=== PATIENT | male | born 1960 | race Caucasian/White ===

== ENCOUNTER 2016-11-25 17:48 | Inpatient (IN) | payer OTHER ==
[~2016-11-25] VITALS: Ht 175.3 cm; Wt 114.2 kg
[~2016-11-25 17:48] MED LIST: ASPIR 8181 M1 PO; ATORVASTATIN CA40 MG PO; AUGMENTIN875 MG PO; BACTRIM,SEPT1 TABLET PO; CLOPIDOGREL75 MG PO; COLACE100 MG PO; DUONEB3 ML IH; ERYTHROCIN BAS250 MG PO; GLIPIZIDE5 MG PO; GLUCOPHAGE1000 MG PO; GLYBURIDE5 MG PO; HABITROL,NICODE21 MG TD; HUMULIN N100 UNITS/ SC; HUMULIN NP100 UNIT/1 SC; KEFLEX500 MG PO; LANTUS 10100 UNITS/ SC; LEVAQUIN500 MG PO; LIPITOR40 MG PO; METFORMIN HCL1000 MG PO; NOHOMEMEDS; NORCO 5/3251 TABLET PO; PLAVIX75 MG PO; TYLENOL EXTRA500 MG PO; Tylenol Regular Stre PO; Zestril,Prinivil PO; Zocor PO
[2016-11-25 18:32] LABS: EOSINOPHIL (%) 2.2 % (0-5); EOSINOPHIL COUNT 0.1 K/uL (0-0.3); HEMATOCRIT 32.2 % (38.0-50.0); LYMPHOCYTE COUNT 0.9 K/uL (1.0-2.8); MCH 28.8 PG (29.0-34.0); MCHC 33.9 G/DL (30.0-36.0); MEAN PLAT.VOLUME 9.7 uM^3 (9.0-12.4); MONOCYTE (%) 15.1 % (3-12); MONOCYTE COUNT 0.7 K/uL (0-0.8); NEUTROPHIL (%) 61.7 % (45-76); NEUTROPHIL COUNT 2.8 K/uL (1.8-6.4); PLATELET COUNT 181 K/uL (156-360); RBC DIS.WIDTH-CV 13.5 % (11.8-14.6); RBC DIS.WIDTH-SD 40.9 % (39-53); RED BLOOD COUNT 3.79 M/uL (4.00-5.50); WHITE BLOOD COUNT 4.5 K/uL (4.1-10.2)
[2016-11-25 18:40] LABS: CHLORIDE 103 mEq/L (99-109); SODIUM 141 mEq/L (136-147)
[2016-11-25 18:42] LABS: GLUCOSE 98 mg/dL (70-99)
[2016-11-25 18:43] LABS: ANION GAP 11 MEQ/L (2-14)
[2016-11-25 18:46] LABS: GFR ESTIMATE (CALCULATED) 42 mL/min/
[2016-11-25 18:47] LABS: UREA NITROGEN (BUN) 27 mg/dL (9-23)
[2016-11-25 18:53] LABS: TROP-I INTERPRETATION NEGATIVE; TROPONIN-I 0.04 ng/mL (0.0-0.30)
[2016-11-25] MEDS ORDERED: LEVEMIR100 UNIT/2 SC ×2 (20:06→20:07)
[2016-11-25] MEDS ORDERED: VENTOLIN HFA18 GM IH (20:07)
[2016-11-25] MEDS ORDERED: NOVOLOG 10100 UNITS/ SC (20:07)
[2016-11-25] MEDS ORDERED: ATORVASTATIN CA40 MG PO (20:07)
[2016-11-25] MEDS ORDERED: GLIPIZIDE5 MG PO (20:07)
[2016-11-25] MEDS ORDERED: ERGOCALCIF50000 UNIT PO (20:08)
[2016-11-25] MEDS ORDERED: HYDROCHLOROTHIA25 MG PO (20:08)
[2016-11-25] MEDS ORDERED: HYDRALAZINE HC100 MG PO (20:08)
[2016-11-25] MEDS ORDERED: METOPROLOL SUCC50 MG PO (20:08)
[2016-11-25] MEDS ORDERED: LISINOPRIL40 MG PO (20:08)
[2016-11-25 23:15] LABS: INTER. NORMALIZED RATIO 1.1; PROTHROMBIN TIME 11.3 (9.2-11.2)
[2016-11-25 23:41] VITALS: BP 185/83
[2016-11-26 01:35] LABS: TROP-I INTERPRETATION NEGATIVE; TROPONIN-I 0.05 ng/mL (0.0-0.30)
[2016-11-26 03:15] VITALS: BP 158/74
[2016-11-26 06:40] LABS: MCH 28.4 PG (29.0-34.0); MCHC 33.3 G/DL (30.0-36.0); MCV 85.2 FL (86-99); MEAN PLAT.VOLUME 10.3 uM^3 (9.0-12.4); PLATELET COUNT 170 K/uL (156-360); RBC DIS.WIDTH-CV 13.7 % (11.8-14.6); RBC DIS.WIDTH-SD 42.1 % (39-53); RED BLOOD COUNT 3.52 M/uL (4.00-5.50); WHITE BLOOD COUNT 3.2 K/uL (4.1-10.2)
[2016-11-26 06:58] LABS: TROP-I INTERPRETATION NEGATIVE; TROPONIN-I 0.05 ng/mL (0.0-0.30)
[2016-11-26 07:14] LABS: ALKALINE PHOSPHATASE 109 IU/L (3-129); ANION GAP 9 MEQ/L (2-14); CHLORIDE 97 MEQ/L (99-109); GFR ESTIMATE (CALCULATED) 37 mL/min/; POTASSIUM 4.3 MEQ/L (3.7-5.4); SAMPLE HEMOLYSIS CHECK 0; SAMPLE ICTERIC CHECK 0; SAMPLE LIPEMIA CHECK 0; TOTAL BILIRUBIN 0.4 MG/DL (0.0-1.0); UREA NITROGEN (BUN) 38 mg/dL (9-23)
[2016-11-26 07:23] LABS: GLUCOSE 498 mg/dL (70-99); SODIUM 132 MEQ/L (136-147)
[2016-11-26 07:41] VITALS: BP 153/71
[2016-11-26 12:30] VITALS: BP 167/79
[2016-11-26 16:26] VITALS: BP 167/79
[2016-11-26 17:23] LABS: POINT-OF-CARE METER ID UU13113700
[2016-11-26 19:25] VITALS: BP 140/64
[2016-11-26 23:30] VITALS: BP 140/67
[2016-11-27 00:26] LABS: CARBON DIOXIDE (BICARBONATE) 30.6 MEQ/L (20-31)
[2016-11-27 00:30] LABS: CHLORIDE 99 mEq/L (99-109); POTASSIUM 4.6 mEq/L (3.7-5.4); SODIUM 133 mEq/L (136-147)
[2016-11-27 00:31] LABS: MAGNESIUM 1.8 mg/dL (1.3-2.7)
[2016-11-27 00:34] LABS: ANION GAP 8 MEQ/L (2-14); TOTAL BILIRUBIN 0.2 mg/dL (0.0-1.0)
[2016-11-27 00:36] LABS: ALKALINE PHOSPHATASE 116 IU/L (3-129); GFR ESTIMATE (CALCULATED) 33 mL/min/
[2016-11-27 00:37] LABS: UREA NITROGEN (BUN) 46 mg/dL (9-23)
[2016-11-27 00:46] LABS: GLUCOSE 417 mg/dL (70-99)
[2016-11-27 05:00] VITALS: BP 146/70
[2016-11-27 07:38] LABS: HEMATOCRIT 32.2 % (38.0-50.0); MCH 27.9 PG (29.0-34.0); MCHC 32.9 G/DL (30.0-36.0); MCV 84.7 FL (86-99); MEAN PLAT.VOLUME 9.9 uM^3 (9.0-12.4); PLATELET COUNT 206 K/uL (156-360); RBC DIS.WIDTH-CV 13.7 % (11.8-14.6); RBC DIS.WIDTH-SD 41.6 % (39-53)
[2016-11-27 07:41] LABS: WHITE BLOOD COUNT 9.4 K/uL (4.1-10.2)
[2016-11-27 07:45] LABS: ANION GAP 9 MEQ/L (2-14); CHLORIDE 103 MEQ/L (99-109); GFR ESTIMATE (CALCULATED) 45 mL/min/; GLUCOSE 221 mg/dL (70-99); POTASSIUM 4.4 MEQ/L (3.7-5.4); SAMPLE HEMOLYSIS CHECK 0; SAMPLE ICTERIC CHECK 0; SAMPLE LIPEMIA CHECK 0; SODIUM 138 MEQ/L (136-147); UREA NITROGEN (BUN) 44 mg/dL (9-23)
[2016-11-27 08:14] VITALS: BP 168/81
[2016-11-27 08:57] LABS: Estimated Average Glucose 163 mg/dL (70-123); HEMOGLOBIN A1c (GLYCOHEMOGLOB) 7.3 % HGB (Below 5.7)
[2016-11-27 11:43] LABS: POINT-OF-CARE METER ID UU13113819; POINT-OF-CARE USER ID 515036437
[2016-11-27] MEDS ORDERED: PREDNISONE20 MG PO (16:17)
[2016-11-27 16:23] LABS: POINT-OF-CARE METER ID UU13113819; POINT-OF-CARE USER ID 515036437
[2016-11-27] MEDS ORDERED: ADVAIR HFA120 INHALA IH (16:26)
[2016-11-27] MEDS ORDERED: LO-DOSE ASPIRIN81 M2 PO (16:43)
== END 2016-11-27 17:02 | disposition home or self-care (01) | DRG 191 ==
LOC: EME 17:48 → EDOF 22:14 → 5WEST 23:25 → 4EAST 11-27 14:20 → 5WEST 11-27 14:22
PROVIDERS: Emergency Medicine; Hospitalist; Internal Medicine; Nurse Practitioner Family; Physician Assistant Medical; Student in an Organized Health Care Education/Training Program
DX: J44.1 Chronic obstructive pulmonary disease with (acute) exacerbation (principal); N17.9 Acute kidney failure, unspecified; I50.32 Chronic diastolic (congestive) heart failure; I25.10 Atherosclerotic heart disease of native coronary artery without angina pectoris; R09.02 Hypoxemia; E78.00 Pure hypercholesterolemia, unspecified; I12.9 Hypertensive chronic kidney disease with stage 1 through stage 4 chronic kidney disease, or unspecified chronic kidney disease; E11.65 Type 2 diabetes mellitus with hyperglycemia; R94.31 Abnormal electrocardiogram [ECG] [EKG]; J20.9 Acute bronchitis, unspecified; D64.9 Anemia, unspecified; E78.5 Hyperlipidemia, unspecified; E66.9 Obesity, unspecified; E11.22 Type 2 diabetes mellitus with diabetic chronic kidney disease; N18.9 Chronic kidney disease, unspecified; Z68.37 Body mass index [BMI] 37.0-37.9, adult; Z87.891 Personal history of nicotine dependence; Z86.73 Personal history of transient ischemic attack (TIA), and cerebral infarction without residual deficits; Z79.84 Long term (current) use of oral hypoglycemic drugs; Z79.02 Long term (current) use of antithrombotics/antiplatelets; Z79.4 Long term (current) use of insulin; Z82.49 Family history of ischemic heart disease and other diseases of the circulatory system
CPT/HCPCS: 71010; 78582; 80048; 80053; 82010; 82803; 82948; 83036; 83735; 83880; 84484; 85025; 85027; 85347; 85379; 85610; 85730; 93005; 94640; 94640 76; 94799; 99202; 99281; 99285; A9540; A9567; C1769; C1887; G0378; J0153; J0360; J1644; J1815; J1940; J2250; J2920; J2930; J3010; J7030; J7040; J7050; J7512

== ENCOUNTER 2016-12-26 05:57 | Observation (INO) | payer OTHER ==
[~2016-12-26] VITALS: Ht 175.3 cm; Wt 128.0 kg
[~2016-12-26 05:57] MED LIST changes: +ADVAIR HFA120 INHALA IH; +ERGOCALCIF50000 UNIT PO; +HYDRALAZINE HC100 MG PO; +HYDROCHLOROTHIA25 MG PO; +LEVEMIR100 UNIT/2 SC; +LISINOPRIL40 MG PO; +LO-DOSE ASPIRIN81 M2 PO; +METOPROLOL SUCC50 MG PO; +NOVOLOG 10100 UNITS/ SC; +PREDNISONE20 MG PO; +VENTOLIN HFA18 GM IH
[2016-12-26 06:19] LABS: HEMATOCRIT 29.8 % (38.0-50.0); MCH 28.6 PG (29.0-34.0); MCHC 32.2 G/DL (30.0-36.0); MCV 88.7 FL (86-99); MEAN PLAT.VOLUME 8.6 uM^3 (9.0-12.4); PLATELET COUNT 250 K/uL (156-360); RBC DIS.WIDTH-CV 13.9 % (11.8-14.6); RBC DIS.WIDTH-SD 44.5 % (39-53); RED BLOOD COUNT 3.36 M/uL (4.00-5.50); WHITE BLOOD COUNT 8.2 K/uL (4.1-10.2)
[2016-12-26 06:29] LABS: CHLORIDE 104 mEq/L (99-109); POTASSIUM 4.5 mEq/L (3.7-5.4); SODIUM 138 mEq/L (136-147)
[2016-12-26 06:31] LABS: GLUCOSE 205 mg/dL (70-99)
[2016-12-26 06:32] LABS: ANION GAP 7 MEQ/L (2-14)
[2016-12-26 06:36] LABS: GFR ESTIMATE (CALCULATED) 42 mL/min/; UREA NITROGEN (BUN) 37 mg/dL (9-23)
[2016-12-26 06:52] LABS: TROP-I INTERPRETATION NEGATIVE; TROPONIN-I 0.04 ng/mL (0.0-0.30)
[2016-12-26] MEDS ORDERED: NORVASC5 MG PO (07:14)
[2016-12-26 10:16] VITALS: BP 150/72
[2016-12-26] MEDS ORDERED: TOPROL XL100 MG PO (11:53)
[2016-12-26] MEDS ORDERED: DELTASONE20 M1 PO (11:55)
[2016-12-26] MEDS ORDERED: ASPIR 8181 M1 PO (11:55)
[2016-12-26 13:05] VITALS: BP 146/70
[2016-12-26 13:28] LABS: TROP-I INTERPRETATION NEGATIVE; TROPONIN-I 0.04 ng/mL (0.0-0.30)
[2016-12-26 16:00] VITALS: BP 137/71
[2016-12-26 17:11] LABS: POINT-OF-CARE METER ID UU13113831
[2016-12-26 19:34] LABS: TROP-I INTERPRETATION NEGATIVE; TROPONIN-I 0.05 ng/mL (0.0-0.30)
[2016-12-26 20:00] VITALS: BP 148/70
[2016-12-27] VITALS: BP 119/85
[2016-12-27 04:00] VITALS: BP 174/84
[2016-12-27 07:32] VITALS: BP 184/84
[2016-12-27 08:08] LABS: HEMATOCRIT 29.5 % (38.0-50.0); MCH 28.3 PG (29.0-34.0); MCHC 31.5 G/DL (30.0-36.0); MCV 89.7 FL (86-99); MEAN PLAT.VOLUME 9.6 uM^3 (9.0-12.4); PLATELET COUNT 248 K/uL (156-360); RBC DIS.WIDTH-CV 14.1 % (11.8-14.6); RBC DIS.WIDTH-SD 45.7 % (39-53); RED BLOOD COUNT 3.29 M/uL (4.00-5.50); WHITE BLOOD COUNT 5.7 K/uL (4.1-10.2)
[2016-12-27 13:32] LABS: ADD MIUA? YES; BILIRUBIN NEGATIVE; BLOOD SMALL; COLOR YELLOW ((YELLOW)); GLUCOSE (STRIP) 150; KETONES NEGATIVE; LEUKOCYTES NEGATIVE; NITRITE NEGATIVE; PROTEIN (STRIP) 100; SPECIFIC GRAVITY 1.013 (1.000-1.030); UROBILINOGEN 0.2 MG/DL (0.2-1.0)
[2016-12-27 14:16] LABS: BACTERIA RARE /HPF; EPITHELIAL CELLS NONE SEEN /HPF; MUCUS NONE SEEN /LPF; UCUL ADDED? NO; WHITE BLOOD CELLS 0-5 /HPF (0-5)
[2016-12-27] MEDS ORDERED: CEFTIN500 MG PO (15:24)
[2016-12-27] MEDS ORDERED: ZITHROMAX500 MG PO (15:24)
== END 2016-12-27 17:15 | disposition home or self-care (01) ==
LOC: EME 05:57 → EDOF 08:45 → 5WEST 08:45 → EDOF 09:04 → 5WEST 09:56
PROVIDERS: Hospitalist; Internal Medicine
DX: J44.0 Chronic obstructive pulmonary disease with (acute) lower respiratory infection (principal); J18.9 Pneumonia, unspecified organism; I12.9 Hypertensive chronic kidney disease with stage 1 through stage 4 chronic kidney disease, or unspecified chronic kidney disease; N18.3 Chronic kidney disease, stage 3 (moderate); E78.5 Hyperlipidemia, unspecified; E66.9 Obesity, unspecified; E11.9 Type 2 diabetes mellitus without complications; Z79.4 Long term (current) use of insulin; Z86.73 Personal history of transient ischemic attack (TIA), and cerebral infarction without residual deficits; D50.9 Iron deficiency anemia, unspecified; Z87.891 Personal history of nicotine dependence
CPT/HCPCS: 71020; 71250; 80048; 81003; 82948; 83880; 84484; 85027; 87040; 93005; 93970; 94640; 99281; 99285; G0378; J0456; J0696; J1644; J1815; J7030; J7050; J7512

== ENCOUNTER 2018-01-25 11:21 | Day surgery (SDC) | payer OTHER ==
[~2018-01-25] VITALS: Ht 175.3 cm; Wt 115.3 kg
[~2018-01-25 11:21] MED LIST changes: +CATAPRES0.1 MG PO; +CEFTIN500 MG PO; +DELTASONE20 M1 PO; +DIOVAN HCT 31 TABLET PO; +NORVASC5 MG PO; +PROCARDIA XL90 MG PO; +SYMBICORT60 INHALAT IH; +TOPROL XL100 MG PO; +ZITHROMAX500 MG PO
[2018-01-25] MEDS ORDERED: DIOVAN HCT 31 TABLET PO (12:10)
[2018-01-25 12:20] LABS: HEMATOCRIT 27.3 % (38.0-50.0); HEMOGLOBIN 8.6 G/DL (12.5-16.6); MCH 28.6 PG (29.0-34.0); MCHC 31.5 G/DL (30.0-36.0); MCV 90.7 FL (86-99); PLATELET COUNT 168 K/uL (156-360); RBC DIS.WIDTH-CV 14.2 % (11.8-14.6); RBC DIS.WIDTH-SD 46.5 % (39-53); RED BLOOD COUNT 3.01 M/uL (4.00-5.50); WHITE BLOOD COUNT 5.5 K/uL (4.1-10.2)
[2018-01-25] MEDS ORDERED: PROCARDIA XL60 MG PO (12:25)
[2018-01-25 12:30] VITALS: BP 152/104
[2018-01-25 12:39] LABS: CHLORIDE 112 MEQ/L (99-109); CREATININE 4.7 MG/DL (0.6-1.3); GFR ESTIMATE (CALCULATED) 14 mL/min/ (58.99-99999); GLUCOSE 90 mg/dL (70-99); SODIUM 140 MEQ/L (136-147); UREA NITROGEN (BUN) 53 mg/dL (9-23)
[2018-01-25 13:43] VITALS: BP 164/98
[2018-01-25] MEDS ORDERED: NORCO 5/3251 TABLET PO (19:03)
[2018-01-25 19:40] VITALS: BP 149/70
[2018-01-25 20:03] VITALS: BP 158/74
== END 2018-01-25 20:18 | disposition home or self-care (01) ==
LOC: SDC 11:21
PROVIDERS: Surgery
DX: I12.0 Hypertensive chronic kidney disease with stage 5 chronic kidney disease or end stage renal disease (principal); E11.22 Type 2 diabetes mellitus with diabetic chronic kidney disease; N18.6 End stage renal disease; Z87.891 Personal history of nicotine dependence; Z79.4 Long term (current) use of insulin; J44.9 Chronic obstructive pulmonary disease, unspecified; Z86.73 Personal history of transient ischemic attack (TIA), and cerebral infarction without residual deficits; E78.5 Hyperlipidemia, unspecified; E21.1 Secondary hyperparathyroidism, not elsewhere classified; D64.9 Anemia, unspecified; Z79.02 Long term (current) use of antithrombotics/antiplatelets; E66.9 Obesity, unspecified; Z68.36 Body mass index [BMI] 36.0-36.9, adult
CPT/HCPCS: 80048; 82948; 85027; 93005; J0131; J0690; J1644; J2250; J2704

== ENCOUNTER 2018-04-21 21:08 | Emergency (ER) | payer OTHER ==
[~2018-04-21] VITALS: Ht 175.3 cm; Wt 112.3 kg
[~2018-04-21 21:08] MED LIST changes: +PROCARDIA XL60 MG PO
[2018-04-21 22:16] LABS: HEMATOCRIT 25.4 % (38.0-50.0); HEMOGLOBIN 8.3 G/DL (12.5-16.6); MCH 27.9 PG (29.0-34.0); MCHC 32.7 G/DL (30.0-36.0); MCV 85.2 FL (86-99); PLATELET COUNT 163 K/uL (156-360); RBC DIS.WIDTH-CV 14.8 % (11.8-14.6); RBC DIS.WIDTH-SD 45.9 % (39-53); RED BLOOD COUNT 2.98 M/uL (4.00-5.50); WHITE BLOOD COUNT 6.6 K/uL (4.1-10.2)
[2018-04-21 22:24] LABS: ALBUMIN 3.6 g/dL (3.2-4.8); CHLORIDE 102 mEq/L (99-109); POTASSIUM 4.4 mEq/L (3.7-5.4); SODIUM 136 mEq/L (136-147)
[2018-04-21 22:26] LABS: GLUCOSE 240 mg/dL (70-99); TOTAL PROTEIN 6.8 g/dL (6.4-8.3)
[2018-04-21 22:28] LABS: TOTAL BILIRUBIN 0.6 mg/dL (0.0-1.0)
[2018-04-21 22:30] LABS: ALKALINE PHOSPHATASE 276 IU/L (3-129); CREATININE 5.3 mg/dL (0.6-1.3); GFR ESTIMATE (CALCULATED) 12 mL/min/ (58.99-99999)
[2018-04-21 22:31] LABS: UREA NITROGEN (BUN) 77 mg/dL (9-23)
[2018-04-21 22:32] LABS: AST (GOT) 19 IU/L (2-34)
[2018-04-21 22:33] LABS: ALT (GPT) 21 IU/L (3-49)
[2018-04-21 22:46] LABS: APPEARANCE CLEAR ((CLEAR)); BILIRUBIN NEGATIVE; BLOOD SMALL; COLOR YELLOW ((YELLOW)); GLUCOSE (STRIP) 150; KETONES NEGATIVE; LEUKOCYTES NEGATIVE; NITRITE NEGATIVE; PROTEIN (STRIP) >=500; SPECIFIC GRAVITY 1.011 (1.000-1.030); UROBILINOGEN 0.2 MG/DL (0.2-1.0)
[2018-04-21 22:50] LABS: BACTERIA RARE /HPF; EPITHELIAL CELLS RARE /HPF; MUCUS TRACE /LPF; RED BLOOD CELLS 0-5 /HPF (0-5); UCUL ADDED? NO; WHITE BLOOD CELLS 0-5 /HPF (0-5)
[2018-04-21] MEDS ORDERED: ATARAX,VISTARIL25 MG PO (23:07)
[2018-04-21 23:18] VITALS: BP 141/72
== END 2018-04-21 23:22 | disposition home or self-care (01) ==
LOC: EME 21:08
PROVIDERS: Physician Assistant
DX: L29.9 Pruritus, unspecified (principal); S83.92XA Sprain of unspecified site of left knee, initial encounter; X50.1XXA Overexertion from prolonged static or awkward postures, initial encounter; W18.30XA Fall on same level, unspecified, initial encounter; E11.22 Type 2 diabetes mellitus with diabetic chronic kidney disease; I12.0 Hypertensive chronic kidney disease with stage 5 chronic kidney disease or end stage renal disease; N18.6 End stage renal disease; D64.9 Anemia, unspecified; Z79.4 Long term (current) use of insulin; Z86.73 Personal history of transient ischemic attack (TIA), and cerebral infarction without residual deficits; Z87.891 Personal history of nicotine dependence
CPT/HCPCS: 73564; 80053; 81003; 85027; 99281; 99284